=== PATIENT | female | born 1955 | race Caucasian/White ===

== ENCOUNTER 2021-03-22 23:25 | Observation (INO) | payer OTHER ==
[2021-03-22 23:32] VITALS: BMI 26.4
[2021-03-23] MEDS ORDERED: MAG HYDROX/AL HYDROX/SIMETH 30 ML UNIT-DOSE CUP PO ONE (00:12)
[2021-03-23] MEDS ORDERED: ASPIRIN 81 MG CHEWABLE TABLETS PO ONE (00:12)
[2021-03-23] MEDS ORDERED: MAG HYDROX/AL HYDROX/SIMETH 30 ML UNIT-DOSE CUP ONE (00:22)
[2021-03-23] MEDS ORDERED: ASPIRIN 81 MG CHEWABLE TABLETS ONE (00:22)
[2021-03-23 00:55] LABS: BASO % 0.3 % (0-2.0); HEMATOCRIT 41.5 % (32.4-45.2); HEMOGLOBIN 14.3 GM/dL (10.7-15.3); LYMPH % 47.6 % (8-40); MCH 31.7 pg (25.7-33.7); MCHC 34.5 g/dl (32.0-36.0); MEAN CELL VOLUME 91.8 fl (80-96); MEAN PLT VOLUME 11.1 fl (7.5-11.1); MONO % 6.7 % (3.8-10.2); NEUT % 45.4 % (42.8-82.8); PLATELET COUNT 99 10^3/uL (134-434); RBC 4.51 M/mm3 (3.60-5.2); RDW 12.3 % (11.6-15.6); WHITE BLOOD COUNT 6.2 K/mm3 (4.0-10.0)
[2021-03-23 01:16] LABS: CHLORIDE 108 mmol/L (98-107); SODIUM 142 mmol/L (136-145)
[2021-03-23 01:18] LABS: CALCIUM 8.5 mg/dL (8.5-10.1)
[2021-03-23 01:19] LABS: ALBUMIN 3.6 g/dl (3.4-5.0); ANION GAP 5 MMOL/L (8-16); BLOOD UREA NITROGEN 17.7 mg/dL (7-18); CO2 30 mmol/L (21-32); GLUCOSE,RANDOM 96 mg/dL (74-106)
[2021-03-23 01:22] LABS: CREATININE 0.6 mg/dL (0.55-1.3); SGOT/AST 28 U/L (15-37); SGPT/ALT 31 U/L (13-61)
[2021-03-23 01:24] LABS: BILIRUBIN,TOTAL 0.4 mg/dL (0.2-1)
[2021-03-23 01:25] LABS: ALK PHOS 107 U/L (45-117)
[2021-03-23 05:58] LABS: HEMATOCRIT 42.9 % (32.4-45.2); HEMOGLOBIN 14.3 GM/dL (10.7-15.3); MCH 30.9 pg (25.7-33.7); MCHC 33.4 g/dl (32.0-36.0); MEAN CELL VOLUME 92.4 fl (80-96); MEAN PLT VOLUME 10.8 fl (7.5-11.1); PLATELET COUNT 95 10^3/uL (134-434); RBC 4.64 M/mm3 (3.60-5.2); RDW 12.3 % (11.6-15.6); WHITE BLOOD COUNT 5.9 K/mm3 (4.0-10.0)
[2021-03-23 06:10] LABS: INR 0.86 (0.83-1.09); PROTHROMBIN TIME (PATIENT) 10.6 SEC (9.7-13.0)
[2021-03-23 06:12] LABS: ACTIVATED PTT 29.6 SECONDS (25.2-36.5); CHLORIDE 107 mmol/L (98-107); SODIUM 145 mmol/L (136-145)
[2021-03-23 06:14] LABS: ANION GAP 8 MMOL/L (8-16); CALCIUM 8.2 mg/dL (8.5-10.1); CO2 29 mmol/L (21-32); GLUCOSE,RANDOM 91 mg/dL (74-106); MAGNESIUM 2.4 mg/dL (1.8-2.4)
[2021-03-23 06:17] LABS: CHOLESTEROL 195 mg/dL (50-200); CREATININE 0.6 mg/dL (0.55-1.3)
[2021-03-23 06:18] LABS: PHOSPHOROUS 3.5 mg/dL (2.5-4.9); TRIGLYCERIDES 157 mg/dL (0-150)
[2021-03-23 06:19] LABS: LDL CHOLESTEROL (ONLY SJRH) 100 mg/dL (5-100)
[2021-03-23 06:20] LABS: HDL CHOLESTEROL 57 mg/dL (40-60)
[2021-03-23 08:36] LABS: URINE APPEARANCE Clear; URINE BILIRUBIN Negative (NEGATIVE); URINE COLOR Yellow; URINE GLUCOSE (UA) Negative (NEGATIVE); URINE KETONE Negative (NEGATIVE); URINE LEUK ESTERASE 1+ (NEGATIVE); URINE NITRITE Negative (NEGATIVE); URINE PROTEIN Negative (NEGATIVE); URINE UROBILINOGEN 0.2 mg/dL (0.2-1.0)
[2021-03-23] MEDS ORDERED: ENOXAPARIN NA (PORCINE) 40 MG/0.4 ML DISP.SYRIN SQ SCH (10:00)
[2021-03-23] MEDS ORDERED: FAMOTIDINE 20 MG TABLET PO SCH (10:00)
[2021-03-23] MEDS ORDERED: ASPIRIN COATED 81 MG TABLET.EC PO SCH (10:00)
[2021-03-23] MEDS ORDERED: ASPIRIN COATED 81 MG TABLET.EC ONE ×2 (10:45→10:55)
[2021-03-23] MEDS ORDERED: FAMOTIDINE 20 MG TABLET ONE ×2 (10:45→10:55)
[2021-03-23] MEDS ORDERED: ENOXAPARIN NA (PORCINE) 40 MG/0.4 ML DISP.SYRIN SQ ONE (10:46)
[2021-03-23 16:38] VITALS: BP 127/72; PULSE 85; TEMP 98.1
== END 2021-03-23 16:30 | disposition home or self-care (01) ==
LOC: JER 23:25 → JERBED 03-23 00:13 → UNDOADMOB 03-23 00:13 → OBSVTOIN 03-23 03:52 → JERBED 03-23 03:52 → INTOOBSV 03-23 03:52
PROVIDERS: ADMIT Internal Medicine; ATTEND Student in an Organized Health Care Education/Training Program
DX: I11.9 Hypertensive heart disease without heart failure (principal); E78.5 Hyperlipidemia, unspecified; R07.9 Chest pain, unspecified; D69.3 Immune thrombocytopenic purpura; K29.70 Gastritis, unspecified, without bleeding; Z29.9 Encounter for prophylactic measures, unspecified; K92.89 Other specified diseases of the digestive system; Z82.49 Family history of ischemic heart disease and other diseases of the circulatory system; K21.9 Gastro-esophageal reflux disease without esophagitis; R31.9 Hematuria, unspecified; N28.1 Cyst of kidney, acquired; R31.29 Other microscopic hematuria; Z86.16 Personal history of COVID-19
CPT/HCPCS: 36415; 71045-TC-FY; 76775-TC; 76856-TC; 80048; 80053; 80061; 81003; 82550; 83036; 83721; 83735; 84100; 84443; 84484; 85025; 85027; 85610; 85730; 93306-TC; 99285-25; C9803; G0378; U0003; U0005

== ENCOUNTER 2024-12-30 15:37 | Emergency (ER) | payer OTHER ==
[2024-12-30 16:33] VITALS: BP 125/79; PULSE 79; RESP 16; TEMP 97.8; BMI 27.6
[2024-12-30 17:24] LABS: ABSOLUTE IMMATURE GRANULOCYTES 0.02 x10^3/uL (0.0-0.031); HEMATOCRIT 43.9 % (34.1-44.9); HEMOGLOBIN 14.9 g/dL (11.2-15.7); MCHC 33.9 g/dl (32.2-35.5); MEAN CELL VOLUME 90.7 fl (79.4-94.8); MEAN PLT VOLUME 13.8 fl (9.4-12.3); MONOCYTE # 0.38 x10^3/uL (0.24-0.86); MONOCYTE % 5.9 % (4.7-12.5); PLATELET COUNT 67 x10^3/uL (182-369)
[2024-12-30 17:48] LABS: INR 0.99 (0.83-1.09); PROTHROMBIN TIME (PATIENT) 10.8 SEC (9.7-13.0)
[2024-12-30 17:50] LABS: POTASSIUM 4.9 mmol/L (3.5-5.1)
[2024-12-30 17:51] LABS: ACTIVATED PTT 31.8 SECONDS (25.2-36.5)
[2024-12-30 17:54] LABS: CALCIUM 9.4 mg/dL (8.5-10.1)
[2024-12-30 17:55] LABS: ALBUMIN 3.8 g/dl (3.4-5.0); BLOOD UREA NITROGEN 16.8 mg/dL (7-18)
[2024-12-30 17:57] LABS: CREATININE 0.7 mg/dL (0.55-1.3)
[2024-12-30 17:59] LABS: BILIRUBIN,TOTAL 0.6 mg/dL (0.2-1); TOT PROT 6.4 g/dl (6.4-8.2)
== END 2024-12-30 21:19 | disposition home or self-care (01) ==
LOC: JER 15:37
PROC: 2W3FX1Z Immobilization of Left Hand using Splint (ICD-10-PCS; principal; 2024-12-30)
DX: S62.317A Displaced fracture of base of fifth metacarpal bone, left hand, initial encounter for closed fracture (principal); S00.83XA Contusion of other part of head, initial encounter; R10.31 Right lower quadrant pain; W19.XXXA Unspecified fall, initial encounter
CPT/HCPCS: 0241U-QW; 29125; 36415; 73110-TC-LT-FY; 73130-TC-LT-FY; 74177-TC; 80053; 83690; 85025; 85610; 85730; 99285-25; Q9967